=== PATIENT | male | born 1950 | race Caucasian/White ===

== ENCOUNTER 2018-07-29 07:12 | Day surgery (SDC) | payer MEDICARE, BC ==
[2018-07-28 08:54] VITALS: BMI 37.5
[~2018-07-29 07:12] MED LIST: LACTATED RINGERS 1,000 ML IV SCH
[2018-07-29 07:36] VITALS: RESP 16; TEMP 98.8
[2018-07-29] MEDS ORDERED: LIDOCAINE 1% 20 ML VIAL (10MG/ML) FOR IV START INTRADERMA ONE (07:45)
[2018-07-29 07:48] LABS: Glucose,Whole Blood 148 mg/dL (75-99)
[2018-07-29] MEDS ORDERED: PROPOFOL 10 MG/ML 20 ML VIAL IV ONE (08:52)
[2018-07-29] MEDS ORDERED: fentaNYL (PF) 50 MCG/ML 2 ML AMP ONE (08:52)
[2018-07-29] MEDS ORDERED: LIDOCAINE 1% INJ 10MG/ML (20 ML MDV) ONE (08:52)
[2018-07-29 09:42] VITALS: BP 120/69; PULSE 60
--- NOTE | 2018-08-01 17:59 | P.PCN ---
Date of Procedure: 07/29/18 Procedure(s) Performed: Procedure: Total colonoscopy. Preoperative diagnoses: Screening for neoplasia, patient has history of polyps. Postoperative diagnosis: Exam within normal limits. Preparation: HalfLytely prep. Sedation: Was provided by anesthesia. Brief clinical history: The patient is a 68-year-old male who is scheduled for this evaluation for screening for neoplasia because of his polyps. His last exam was in 2013. The patient has no abdominal complaints, bleeding or anemia. Procedure: With the patient on his left lateral decubitus position and after informed consent and adequate sedation, the perianal area was inspected and it did not show any fissures or fistulas. There were no masses felt on digital rectal examination. The Olympus CFH 190L video colonoscope was then inserted in the rectum in the usual fashion and advanced to the cecum. No polyps or tumors were seen or any obvious diverticular disease or other pathology. I retroflexed the endoscope in the rectum before the endoscope was withdrawn. The patient tolerated the procedure well. Plan: The patient was reassured. He will follow-up with you as planned, and I recommended repeat exam in 5 years.
== END 2018-07-29 09:49 | disposition home or self-care (01) ==
LOC: ORWHC2ENDO 07:12
DX: Z12.11 Encounter for screening for malignant neoplasm of colon (principal); Z86.010 Personal history of colon polyps; E11.9 Type 2 diabetes mellitus without complications; I10 Essential (primary) hypertension; E78.5 Hyperlipidemia, unspecified; M19.90 Unspecified osteoarthritis, unspecified site; Z90.49 Acquired absence of other specified parts of digestive tract; Z79.84 Long term (current) use of oral hypoglycemic drugs; Z79.899 Other long term (current) drug therapy
CPT/HCPCS: J2001; J3010; J2704; G0105; 45378

== ENCOUNTER 2020-07-07 21:47 | Emergency (ER) | payer MEDICARE, BC ==
[2020-07-07 21:54] VITALS: RESP 18; TEMP 98
[2020-07-07] MEDS ORDERED: OXYMETAZOLINE 0.05% NASL SPRAY 1 SPRAY BOTTLE NASAL STA (21:59)
[2020-07-07] MEDS ORDERED: cloNIDine HCL 0.2 MG TAB PO STA (21:59)
[2020-07-07] MEDS ORDERED: BACITRACIN OINT 1 EACH PACKET TOPICAL ONE (23:34)
[2020-07-08] MEDS ORDERED: CEPHALEXIN 500MG STARTER PACK 4 CAP BTL PO STA (00:29)
--- NOTE | 2020-07-08 00:29 | ED ---
ENT HPI - General Chief complaint: ENT Stated complaint: bloody nose Time Seen by Provider: 07/07/20 21:58 Source: patient Mode of arrival: ambulatory Limitations: no limitations - History of Present Illness Initial comments: This patient is 70-year-old man who presents to be evaluated for nosebleed. I it had started tonight and he was not able to get stop at home. Patient notes is from the right naris. I denies facial pain. He did have recent course of antibiotics for dental infection. Patient denies symptoms of anemia MD complaint: epistaxis -: hour(s) Location: nose Consistency: constant Improves with: none Worsens with: none - Related Data Home Medications Medication Instructions Recorded Confirmed Pravastatin Sodium [Pravachol] 80 mg PO HS 07/28/18 07/29/18 hydroCHLOROthiazide [Hydrodiuril] 25 mg PO DAILY 07/28/18 07/29/18 lisinopriL [Zestril] 5 mg PO DAILY 07/28/18 07/29/18 metFORMIN HCL [metFORMIN HCL ER 500 mg PO BID 07/28/18 07/29/18 Osmotic] Previous Rx's Medication Instructions Recorded Cephalexin [Keflex] 500 mg PO Q6HR #20 cap 07/08/20 Allergies Allergy/AdvReac Type Severity Reaction Status Date / Time No Known Allergies Allergy Verified 07/07/20 21:54 Review of Systems ROS Statement: Those systems with pertinent positive or pertinent negative responses have been documented in the HPI. ROS Other: All systems not noted in ROS Statement are negative. Constitutional: Denies: fever, chills, weakness Eyes: Denies: eye pain, vision change ENT: Reports: as per HPI, epistaxis. Denies: ear pain, dental pain, hearing loss Respiratory: Denies: cough, dyspnea Cardiovascular: Denies: chest pain, palpitations, dyspnea on exertion, orthopnea, syncope Gastrointestinal: Denies: abdominal pain, vomiting, diarrhea Skin: Denies: rash Neurological: Denies: headache, weakness Hematological/Lymphatic: Denies: easy bleeding Past Medical History Past Medical History: Diabetes Mellitus, Hyperlipidemia, Hypertension, Osteoart hritis (OA) History of Any Multi-Drug Resistant Organisms: None Reported Past Surgical History: Hernia Repair Additional Past Surgical History / Comment(s): COLONOSCOPY X3, HYDROCELE SURGERY,VASECTOMY Past Anesthesia/Blood Transfusion Reactions: No Reported Reaction Past Psychological History: No Psychological Hx Reported Past Alcohol Use History: None Reported Past Drug Use History: None Reported - Past Family History Mother Family Medical History: Cancer Additional Family Medical History / Comment(s): SKIN CANCER Father Family Medical History: Cancer Additional Family Medical History / Comment(s): BLADDER CANCER General Exam Limitations: no limitations General appearance: alert, in no apparent distress Head exam: Present: atraumatic, normocephalic Eye exam: Present: normal appearance. Absent: scleral icterus, conjunctival injection ENT exam: Present: normal oropharynx, mucous membranes moist Neck exam: Present: normal inspection, full ROM. Absent: lymphadenopathy Respiratory exam: Present: normal lung sounds bilaterally. Absent: respiratory distress, wheezes, rales, rhonchi, stridor Cardiovascular Exam: Present: regular rate, normal rhythm, normal heart sounds. Absent: systolic murmur, diastolic murmur, rubs, gallop Neurological exam: Present: alert Skin exam: Present: warm, dry, intact, normal color. Absent: rash Course Vital Signs 07/07/20 07/07/20 07/08/20 21:52 22:11 00:49 Temperature 98.0 F 98.0 F Pulse Rate 78 64 Respiratory 18 18 18 Rate Blood Pressure 190/130 168/71 125/58 O2 Sat by Pulse 98 100 Oximetry Medical Decision Making - Medical Decision Making Patient is 70-year-old man with epistaxis. I initially attempted treatment with Afrin spray and controlling blood pressure. I did appear that there was a small spot where there was anterior bleeding and this was cauterized using silver nitrate. The patient was observed however and did continue to have some further epistaxis. We discussed options and the patient did elect to go with nasal packing. I placed a Rhino Rocket without complication. The patient was observed and this did control the bleeding. Discussed appropriate further care and follow-up as well as return parameters. Disposition Clinical Impression: Epistaxis Disposition: HOME SELF-CARE Condition: Good Instructions (If sedation given, give patient instructions): Nosebleed (ED) Prescriptions: Cephalexin [Keflex] 500 mg PO Q6HR #20 cap Is patient prescribed a controlled substance at d/c from ED?: No Referrals: Lizzette Shirley MD [Primary Care Provider] - 1-2 days Lamonte Rhodes DO [Doctor of Osteopathic Medicine] - 1-2 days
[2020-07-08 00:52] VITALS: BP 125/58; PULSE 64
== END 2020-07-08 01:30 | disposition home or self-care (01) ==
LOC: EC 21:47
DX: R04.0 Epistaxis (principal); E11.9 Type 2 diabetes mellitus without complications; I10 Essential (primary) hypertension; E78.5 Hyperlipidemia, unspecified; M19.90 Unspecified osteoarthritis, unspecified site; Z79.84 Long term (current) use of oral hypoglycemic drugs; Z79.899 Other long term (current) drug therapy
CPT/HCPCS: 99283

== ENCOUNTER → 2023-11-13 | Outpatient (CLI) | payer MEDICARE, BC ==
--- NOTE | 2023-11-13 13:17 | US ---
EXAMINATION TYPE: US abdomen complete DATE OF EXAM: 11/13/2023 COMPARISON: NONE CLINICAL INDICATION: Male, 73 years old with history of R11.2 NAUSEA WITH VOMITING; TECHNIQUE: Multiple sonographic images of the abdomen are obtained. FINDINGS: EXAM MEASUREMENTS: Liver Length: 17.0 cm Gallbladder Wall: 0.2 cm CBD: 0.5 cm Spleen: 10.0 cm Right Kidney: 13.5 x 7.2 x 6.3 cm Left Kidney: 14.5 x 4.8 x 4.8 cm PANEL MAKER NOTES: Pancreas: Obscured by bowel gas Liver: Increased attenuation, decreased visualization of vessels suggestive of fatty infiltrate, obs cured by bowel gas; focal fatty sparring Gallbladder: wnl Evidence for sonographic Matthews's sign: No CBD: wnl Spleen: wnl Right Kidney: wnl Left Kidney: wnl Upper IVC: Obscured by overlying bowel gas Abd Aorta: Obscured by overlying bowel gas IMPRESSION: 1. No evidence for acute process. 2. Hepatic steatosis. [facility], , 11/13/2023 1:15 PM
== END | disposition home or self-care (01) ==
LOC: RADUSWWP 09:45
PROVIDERS: ATTEND Internal Medicine Geriatric Medicine
DX: R11.2 Nausea with vomiting, unspecified
CPT/HCPCS: 76700